=== PATIENT | male | born 1985 | race Caucasian/White ===

== ENCOUNTER 2021-10-30 16:39 | Emergency (ER) | payer OTHER ==
[~2021-10-30] VITALS: Ht 175.3 cm; Wt 81.6 kg
[2021-10-30 16:50] VITALS: BP 145/85
[2021-10-30] MEDS ORDERED: ACETAMINOPHEN 325 MG TAB PO ONE (17:40)
[2021-10-30 18:59] VITALS: BP 145/85
--- NOTE | 2021-10-30 18:59 | NUR ---
Patient discharged with v/s stable. Written and verbal after care instructions given and explained. Patient verbalized understanding. Ambulatory with in custody. All questions addressed prior to discharge. Advised to follow up with PMD.
== END 2021-10-30 18:59 ==
LOC: MED 16:39
DX: S80.812A Abrasion, left lower leg, initial encounter (principal); M25.531 Pain in right wrist; R51.9 Headache, unspecified; I10 Essential (primary) hypertension; X58.XXXA Exposure to other specified factors, initial encounter; Y93.89 Activity, other specified; Y92.89 Other specified places as the place of occurrence of the external cause; Y99.8 Other external cause status
CPT/HCPCS: 70450; 70486; 73110; 73590; 90471; 90715; 99284